=== PATIENT | female | born 1945 | race African-American/Black ===

== ENCOUNTER 2016-09-29 10:35 | Inpatient (IN) | payer OTHER, BC ==
[~2016-09-29] VITALS: Ht 167.6 cm; Wt 135.2 kg
--- NOTE | ~2016-09-29 | 2DMMODE ---
[facility] [address] [place] [address] 2 D/M-MODE ECHOCARDIOGRAM Name: ZULEIMA QUESADA Room #: 454-P ADM IN M.R.#: [id number] Admission: 09/29/16 Attend Phys: Atul Kitchen, Discharge: Date of : 49 Date of Service: 09/29/16 1555 Report #: [id number] THIS REPORT FOR: //name// APPROVED REPORT Study performed: 09/29/2016 14:58:49 EXAM: Comprehensive 2D, Doppler, and color-flow Echocardiogram Patient Location: Bedside Room #: 454 Status: routine Other Information Study Quality: Adequate Indications Arm heaviness. Hx: HTN, HLP 2D Dimensions RVDd: 36.03 mm LVEF(%): 62.04 (>50%) IVSd: 14.41 (7-11mm) LVOT Diam: 19.91 (18-24mm) LVDd: 43.45 mm PWd: 13.21 (7-11mm) LVDs: 29.04 (25-40mm) Aortic Root: 30.87 mm Neumann's LVEF: 62.04 % Volumes Left Atrial Volume (Systole) Single Plane 4CH: 64.39 mL Single Plane 2CH: 72.41 mL LA ESV Index: 31.00 mL/m2 Aortic Valve AoV Peak Mark.: 1.56 m/s AO Peak Gr.: 9.74 mmHg LVOT Max P.17 mmHg LVOT Max V: 1.43 m/s CHANDA Vmax: 2.85 cm2 Mitral Valve E/A Ratio: 0.8 MV Decel. Time: 272.71 ms MV E Max Mark.: 0.63 m/s MV A Mark.: 0.75 m/s MV PHT: 79.09 ms IVRT: 92.27 ms [facility] [place] [address] 2 D/M-MODE ECHOCARDIOGRAM Name: ZULEIMA QUESADA MAY Room #: 454-P [facility] IN ..#: [id number] Admission: 09/29/16 Attend Phys: Atul Kitchen, Discharge: Date of : 49 Date of Service: 09/29/16 1555 Report #: [id number] Pulmonary Valve PV Peak Mark.: 1.03 m/s PV Peak Gr.: 4.20 mmHg Pulmonary Vein P Vein S: 0.57 m/s P Vein A: 0.34 m/s P Vein D: 0.41 m/s P Vein A Dur.: 115.3 msec P Vein S/D Ratio: 1.39 Tricuspid Valve TR Peak Mark.: 3.23 m/s RAP Estimate: 5.00 mmHg TR Peak Gr.: 41.72 mmHg PA Pressure: 47.00 mmHg Left Ventricle The left ventricle is normal size. There is normal LV segmental wall motion. Mild to moderate concentric left ventricular hypertrophy. Left ventricular systolic function is normal. LVEF is 65-70%. Grade I diastolic dysfunction Right Ventricle The right ventricle is normal size. The right ventricular systolic function is normal. Atria Left atrium is at the upper limits of normal. The right atrium size is normal. Aortic Valve The aortic valve is not well visualized. No aortic regurgitation is present. There is no aortic valvular stenosis. Mitral Valve The mitral valve is normal in structure. Trace mitral regurgitation. Tricuspid Valve The tricuspid valve is normal in structure. There is mild tricuspid regurgitation. The right atrial pressure is estimated at 5 mmHg. There is moderate pulmonary hypertension with an estimated PAP of 47mmHg. Pulmonic Valve Pulmonic valve is not well visualized. [employer] [address] [address] 2 D/M-MODE ECHOCARDIOGRAM Name: ZULEIMA QUESADA Room #: 454-P [facility] IN [facility].#: [id number] Admission: 09/29/16 Attend Phys: Atul Kitchen, Discharge: Date of : 49 Date of Service: 09/29/16 1555 Report #: [id number] The aortic root is normal in size. IVC is normal in size and collapses >50% with inspiration. Pericardium There is no pericardial effusion. <Conclusion> Left ventricular systolic function is normal. There is normal LV segmental wall motion. LVEF 65-70%. Grade I diastolic dysfunction The aortic valve is not well visualized. No aortic regurgitation or stenosis The mitral valve is normal in structure. Trace mitral regurgitation. Pulmonary artery pressure of 47mmHg There is no pericardial effusion. <ELECTRONICALLY SIGNED> By: Raheel Miranda MD, [facility] 09/29/16 1555 1555 1555 Raheel Miranda MD, FAC /INF
--- NOTE | ~2016-09-29 | HC ---
[facility] [place] [address] CONSULTATION Name: ZULEIMA QUESADA Room #: 454-P [facility] IN M.R.#: [id number] Admission: 09/29/16 Attend Phys: Atul Kitchen DO Discharge: Date of : 49 Report #: [id number] THIS REPORT FOR: //name// CC: Autl Salcedoalicia Transon DATE OF SERVICE: 09/29/2016 INDICATION: Anginal equivalent/left arm discomfort. HISTORY OF PRESENT ILLNESS: This is a pleasant 71-year-old female with a past medical history significant for hypertension, hypercholesterolemia and herniated lumbar spine. The patient reports experiencing a discomfort in her left arm for the past one week. It seems to come and go, not related to walking. left hand or carrying groceries with the left hand will aggravate or exacerbate the discomfort in the left arm. There is no change in symptoms with carrying groceries with the right hand. She denies any history of dyspnea, lightheadedness, palpitations, or congestion. PAST MEDICAL HISTORY: Hypertension, hypercholesterolemia, and lumbar laminectomy. ALLERGIES: To CONTRAST DYE and SULFA. MEDICATIONS: Include Toprol-XL 50 mg daily, albuterol inhaler, aspirin once a day, amlodipine 5 mg, and lorazepam. SOCIAL HISTORY: Denies tobacco use. FAMILY HISTORY: Negative for premature CAD. REVIEW OF SYSTEMS: A full 10-point review of systems performed. Only the pertinent positives and negatives are described in the HPI. PHYSICAL EXAMINATION: VITAL SIGNS: Blood pressure is 140/70, heart rate is 70 beats per minute. GENERAL APPEARANCE: This is an overweight female, in no acute respiratory distress. HEAD AND EYES: Normocephalic. Sclerae are anicteric. ENT: Oral mucosa moist. NECK: Supple. LUNGS: Clear to auscultation. No wheezing. CARDIAC: Regular rate and rhythm, S1, S2 positive. ABDOMEN: Soft, nontender. EXTREMITIES: No major joint deformities. No edema. NEUROLOGIC: Alert and oriented x3. [facility] [address] [place] [address] CONSULTATION Name: ZULEIMA QUESADA MAY Room #: [address] [place] [address] IN M.R.#: [id number] Admission: 09/29/16 Attend Phys: Atul Kitchen DO Discharge: Date of : 49 Report #: [id number] SKIN: No rashes. LABORATORY VALUES: Sodium is 142, creatinine is 0.6. Troponin is negative. White count is 4.8, hemoglobin 15.1. ECG reveals sinus rhythm, nonspecific T-wave abnormalities. Echo reveals normal LV systolic function. ASSESSMENT AND PLAN: 1. Left arm discomfort, by history. The etiology is more likely related to arthritis of the left shoulder or neuropathy extending from her cervical spine. She would benefit from an orthopedic and possibly a neurologic consultation. 2. Hypertension. The blood pressure is stable on the current regimen. The echo reveals normal left ventricular systolic function. We would defer any type of stress testing until her primary complaint has been evaluated. 3. Hypercholesterolemia, consider a fasting lipid profile. 4. Obesity, dietary restrictions has been discussed. Thank you for allowing me to participate in the care of your patient. <ELECTRONICALLY SIGNED> By: Andres Malave MD 09/30/16 0746 1837 [id number] Andres Malave MD /nt
--- NOTE | ~2016-09-29 | EKG ---
[address] [place] [address] ELECTROCARDIOGRAM REPORT Name: ZULEIMA QUESADA Room #: 454-P ADM IN M.R.#: [id number] Admission: 09/29/16 Attend Phys: Atul Kitchen DO Discharge: Date of : 49 Report #: [id number] THIS REPORT FOR: //name// [facility] ED Test Date: 2016-09-29 Test Time: 11:22:45 Pat Name: ZULEIMA QUESADA Department: Room: [facility] Gender: F Canteen Operator: KKODJOVI : 1945 Requested By: Neelima Haskins Order Number: [id number] MD: Raheel Miranda Measurements Intervals [place] Rate: 71 P: 39 SD: 208 QRS: 5 QRSD: 102 T: 15 QT: 413 QTc: 449 Interpretive Statements Sinus rhythm Borderline T wave abnormalities Compared to ECG 02/15/2013 07:24:12 No significant changes Electronically Signed On 09-30-2016 7:51:26 CDT by Raheel Miranda [email or web address] <ELECTRONICALLY SIGNED> By: Raheel Miranda MD, [facility] 09/30/16 0751 21 21 Raheel Miranda MD, [facility] /EPI
[~2016-09-29 10:35] MED LIST: ACETAMINOPHEN-1 EAC1 PO; ALLEGRA ALLERG180 MG PO; ASPIRIN EC325 M1 PO; ATENOLOL 50 MG50 M1 PO; ATIVAN0.5 MG PO; ATIVAN1 MG PO; CIPROFLOXACIN500 M1 PO; DIFLUCAN150 MG PO; FLOMAX PO; IBUPROFEN 600600 M1 PO; LOPRESSOR 50 MG50 M1 PO; LORTAB 10 MG-3473 ML PO; MAXIDE PO; MAXZIDE 75-501 EACH PO; MINIPRIN81 MG PO; MOM; MULTIVITAMINS PO; NORCO 5-325 TA1 EACH PO; NORVASC 5 MG TAB5 MG PO; PAXIL10 MG; PROAIR HFA8.5 GM INH; SIMVASTATIN40 MG PO; TOPROL XL50 MG PO; VITAMIN D1000 UNI1 PO; VITAMIN D400 UNI1 PO; ZETIA10 MG PO; ZOFRAN ODT4 MG PO
[2016-09-29 10:38] VITALS: BP 171/92
[2016-09-29 12:14] LABS: HEMATOCRIT 44.9 % (37.0-47.0); HEMOGLOBIN 15.1 gm/dL (12.0-15.0); MCH 30.7 pg (26.0-34.0); MCHC 33.6 g/dL (28.0-37.0); MCV 91.2 fL (80.0-100.0); RBC 4.92 mil/uL (4.20-5.00); RDW 14.3 % (10.5-14.5); WBC 4.8 thou/uL (4.0-11.0)
[2016-09-29 12:26] LABS: ANION GAP 8 mmol/L (7-16); BUN 17 mg/dL (7-18); CALCIUM 9.5 mg/dL (8.5-10.1); CHLORIDE 104 mmol/L (98-107); CO2 30 mmol/L (21-32); CREATININE 0.6 mg/dL (0.6-1.0); GLUCOSE 106 mg/dL (74-106); POTASSIUM 3.5 mmol/L (3.5-5.1); SODIUM 142 mmol/L (136-145)
[2016-09-29 12:33] LABS: ALBUMIN 3.7 g/dL (3.4-5.0); ALKALINE PHOSPHATASE 95 U/L (46-116); SGOT 17 U/L (15-37); SGPT 23 U/L (30-65); TOTAL BILIRUBIN 0.5 mg/dL (<0.1-1.0); TOTAL PROTEIN 7.8 g/dL (6.4-8.2); TROPONIN-I < 0.04 ng/mL (<0.04-0.07)
[2016-09-29 14:14] VITALS: BP 136/79
[2016-09-29 14:47] LABS: CHOLESTEROL 283 mg/dL (<200); HDL CHOLESTEROL 92 mg/dL (>40); LDL CHOLESTEROL 176 mg/dL (<100); SERUM ASSESSMENT Clear; TC:HDL 3.1 Ratio (Not establshd); TRIGLYCERIDE 78 mg/dL (<150); VLDL 16 mg/dL (<40)
[2016-09-29 14:53] VITALS: BP 138/74
[2016-09-29 15:01] VITALS: BP 140/74
[2016-09-29 18:58] VITALS: BP 127/69
[2016-09-30 02:23] LABS: BASOPHILS 0.6 % (0.0-2.0); EOSINOPHILS 2.1 % (0.0-3.0); HEMATOCRIT 41.8 % (37.0-47.0); HEMOGLOBIN 13.9 gm/dL (12.0-15.0); LYMPHOCYTES 28.4 % (24.0-44.0); MCH 30.1 pg (26.0-34.0); MCHC 33.2 g/dL (28.0-37.0); MCV 90.6 fL (80.0-100.0); MONOCYTES 8.9 % (1.0-8.0); PLATELET COUNT 181 thou/uL (150-400); RBC 4.61 mil/uL (4.20-5.00); WBC 5.1 thou/uL (4.0-11.0)
[2016-09-30 02:24] LABS: MANUAL DIFF NO
[2016-09-30 02:39] LABS: ANION GAP 6 mmol/L (7-16); BUN 15 mg/dL (7-18); CHLORIDE 108 mmol/L (98-107); CO2 28 mmol/L (21-32); CREATININE 0.7 mg/dL (0.6-1.0); GLUCOSE 105 mg/dL (74-106); POTASSIUM 3.5 mmol/L (3.5-5.1); SODIUM 142 mmol/L (136-145); TROPONIN-I < 0.04 ng/mL (<0.04-0.07)
[2016-09-30 04:18] VITALS: BP 142/74
[2016-09-30 07:48] VITALS: BP 126/72
[2016-09-30 11:28] VITALS: BP 157/94
[2016-09-30 15:00] VITALS: BP 103/58
[2016-09-30 17:04] VITALS: BP 103/58
== END 2016-09-30 17:40 | disposition home or self-care (01) | DRG 92 ==
LOC: ER 10:35 → EROBS 13:50 → 4W 13:50
PROVIDERS: Family Medicine; Physician Assistant
DX: R20.0 Anesthesia of skin (principal); Z68.42 Body mass index [BMI] 45.0-49.9, adult; I10 Essential (primary) hypertension; E78.00 Pure hypercholesterolemia, unspecified; E66.9 Obesity, unspecified; Z96.0 Presence of urogenital implants; J45.909 Unspecified asthma, uncomplicated; E78.5 Hyperlipidemia, unspecified; F41.9 Anxiety disorder, unspecified; Z88.2 Allergy status to sulfonamides; Z91.041 Radiographic dye allergy status; Z79.82 Long term (current) use of aspirin; Z87.442 Personal history of urinary calculi; Z79.899 Other long term (current) drug therapy
CPT/HCPCS: 10045

== ENCOUNTER 2019-03-01 13:49 | Emergency (ER) | payer OTHER, BC ==
[~2019-03-01] VITALS: Ht 170.2 cm; Wt 113.4 kg
[2019-03-01 14:32] LABS: ABSOLUTE NEUTROPHILS 7.5 thou/uL (1.4-8.2); BASOPHILS 0.5 % (0.0-2.0); EOSINOPHILS 0.9 % (0.0-3.0); HEMATOCRIT 41.8 % (37.0-47.0); HEMOGLOBIN 13.5 gm/dL (12.0-15.0); MCHC 32.3 g/dL (28.0-37.0); MCV 92.8 fL (80.0-100.0); MONOCYTES 7.5 % (1.0-8.0); PLATELET COUNT 182 thou/uL (150-400); POLYS 83.1 % (36.0-66.0); RBC 4.51 mil/uL (4.20-5.00); RDW 14.4 % (10.5-14.5)
[2019-03-01 14:47] LABS: PROTIME 10.6 Seconds (9.3-11.4)
[2019-03-01 14:49] LABS: URINE BILIRUBIN NEGATIVE (Negative); URINE BLOOD 3+ (Negative); URINE CLARITY CLEAR; URINE COLOR YELLOW; URINE GLUCOSE-RANDOM* NEGATIVE (Negative); URINE KETONES NEGATIVE (Negative); URINE LEUKOCYTES-REFLEX 1+ (Negative); URINE NITRITE-REFLEX NEGATIVE (Negative); URINE PROTEIN (DIPSTICK) NEGATIVE (Negative); URINE SPECIFIC GRAVITY 1.015 (1.005-1.035); URINE UROBILINOGEN 0.2 E.U./dl (0.2-1.0)
[2019-03-01 14:50] LABS: ALBUMIN 3.7 g/dL (3.4-5.0); ANION GAP 10 mmol/L (7-16); BUN 17 mg/dL (7-18); CHLORIDE 104 mmol/L (98-107); CO2 28 mmol/L (21-32); CREATININE 0.8 mg/dL (0.6-1.0); GLUCOSE 109 mg/dL (74-106); LIPASE 210 U/L (73-393); POTASSIUM 4.2 mmol/L (3.5-5.1); SGOT 21 U/L (15-37); SGPT 29 U/L (30-65); SODIUM 142 mmol/L (136-145); TOTAL BILIRUBIN 0.4 mg/dL (<0.1-1.0); TOTAL PROTEIN 7.7 g/dL (6.4-8.2); TROPONIN-I <0.06 ng/mL (<0.06)
[2019-03-01] MEDS ORDERED: METFORMIN HCL500 M3 PO (14:51)
[2019-03-01 14:55] LABS: CALCIUM 10.3 mg/dL (8.5-10.1)
[2019-03-01 15:02] LABS: CASTS None Seen /LPF (None Seen); SQUAMOUS 0-3 Few /LPF (0-3); URINE RBC >20 Many /HPF (0-2); URINE WBC-REFLEX 0-5 Rare /HPF (0-5)
[2019-03-01 15:03] LABS: BACTERIA-REFLEX 1-9 Few /HPF (None Seen); CRYSTALS None Seen /LPF (None Seen)
[2019-03-01] MEDS ORDERED: ZOFRAN ODT4 MG PO (16:06)
[2019-03-01] MEDS ORDERED: KEFLEX500 M1 PO (16:06)
[2019-03-01] MEDS ORDERED: NORCO 5-325 TA1 EAC1 PO (16:06)
[2019-03-01 16:43] VITALS: BP 167/83
--- NOTE | 2019-03-03 14:59 | EKG ---
[address] [place] [address] ELECTROCARDIOGRAM REPORT Name: ZULEIMA QUESADA [id number] Admission: 03/01/19 Attend Phys: Discharge: 03/01/19 Date of : 49 Report #: [id number] THIS REPORT FOR: //name// [facility] ED Test Date: 2019-03-01 Test Time: 14:31:48 Pat Name: ZULEIMA QUESADA Department: Room: Gender: F Director Of Religious Activities: : 1945 Requested By: Beatris Davies Order Number: [id number] MD: Titi Bucio Measurements Intervals [place] Rate: 80 P: 58 MA: 221 QRS: 17 QRSD: 98 T: 21 QT: 388 QTc: 448 Interpretive Statements Sinus rhythm Prolonged MA interval Probable left atrial enlargement Compared to ECG 12/24/2016 14:03:19 First degree AV block now present T-wave abnormality no longer present Electronically Signed On 03-03-2019 14:59:05 ASSEMBLER 1ST SHIFT by Titi Bucio [email or web address] <ELECTRONICALLY SIGNED> By: Titi Bucio MD 03/03/19 1459 143 143 Titi Bucio MD /JOE
== END 2019-03-01 16:43 | disposition home or self-care (01) ==
LOC: ER 13:49
PROVIDERS: Physician Assistant
DX: N20.1 Calculus of ureter (principal); R11.2 Nausea with vomiting, unspecified; I10 Essential (primary) hypertension; E78.00 Pure hypercholesterolemia, unspecified; J45.909 Unspecified asthma, uncomplicated; F41.9 Anxiety disorder, unspecified; Z87.442 Personal history of urinary calculi; Z91.041 Radiographic dye allergy status; Z88.2 Allergy status to sulfonamides

== ENCOUNTER 2019-12-08 03:43 | Emergency (ER) | payer OTHER, BC ==
[~2019-12-08] VITALS: Ht 170.2 cm; Wt 130.6 kg
[~2019-12-08 03:43] MED LIST changes: +KEFLEX500 M1 PO; +METFORMIN HCL500 M3 PO; +NORCO 5-325 TA1 EAC1 PO
[2019-12-08 05:24] LABS: BASOPHILS 0.8 % (0.0-2.0); EOSINOPHILS 1.9 % (0.0-3.0); HEMATOCRIT 43.6 % (37.0-47.0); HEMOGLOBIN 14.1 gm/dL (12.0-15.0); LYMPHOCYTES 19.1 % (24.0-44.0); MCH 29.7 pg (26.0-34.0); MCHC 32.4 g/dL (28.0-37.0); MCV 91.7 fL (80.0-100.0); MONOCYTES 8.1 % (1.0-8.0); PLATELET COUNT 201 thou/uL (150-400); POLYS 70.1 % (36.0-66.0); RBC 4.76 mil/uL (4.20-5.00); RDW 14.5 % (10.5-14.5); WBC 4.3 thou/uL (4.0-11.0)
[2019-12-08 05:25] LABS: ANION GAP 11 mmol/L (7-16); BUN 18 mg/dL (7-18); CALCIUM 9.5 mg/dL (8.5-10.1); CHLORIDE 103 mmol/L (98-107); CO2 27 mmol/L (21-32); CREATININE 0.6 mg/dL (0.6-1.0); GLUCOSE 113 mg/dL (74-106); POTASSIUM 4.2 mmol/L (3.5-5.1); SODIUM 141 mmol/L (136-145)
[2019-12-08 05:35] LABS: ALBUMIN 3.7 g/dL (3.4-5.0); MAGNESIUM 1.7 mg/dL (1.8-2.4); SGOT 28 U/L (15-37); SGPT 22 U/L (30-65); TOTAL BILIRUBIN 0.5 mg/dL (0.2-1.0); TROPONIN-I <0.06 ng/mL (<0.06)
[2019-12-08] MEDS ORDERED: MECLIZINE HCL25 M1 PO (05:50)
[2019-12-08] MEDS ORDERED: VALIUM2 MG PO (05:50)
[2019-12-08 05:57] VITALS: BP 147/79
--- NOTE | 2019-12-08 07:52 | EKG ---
[facility] [place] [address] ELECTROCARDIOGRAM REPORT Name: ZULEIMA QUESADA Room #: DEP [facility]#: [id number] Admission: 12/08/19 Attend Phys: Discharge: 12/08/19 Date of : 49 Report #: [id number] THIS REPORT FOR: cc: Jelani Powell MD, Sequita MD Lundgren,Raheel Mccloud MD [facility] ~ THIS REPORT FOR: //name// [facility] ED Test Date: 2019-12-08 Test Time: 03:59:40 Pat Name: ZULEIMA QUESADA Department: Room: Gender: F Mail Distributor: [facility] : 1945 Requested By: Daren Kelly Order Number: [id number] MD: Raheel Miranda Measurements Intervals [place] Rate: 75 P: 32 TN: 242 QRS: 8 QRSD: 97 T: 33 QT: 420 QTc: 470 Interpretive Statements Sinus rhythm Prolonged TN interval Borderline T wave abnormalities Compared to ECG 03/01/2019 14:31:48 T-wave abnormality now present Electronically Signed On 12-08-2019 7:52:04 CDT by Raheel Miranda [email or web address] <ELECTRONICALLY SIGNED> By: Raheel Miranda MD, FAC 12/08/19 0752 0359 0359 Raheel Miranda MD, FAC /EPI
== END 2019-12-08 06:10 | disposition still patient (30) ==
LOC: ER 03:43
PROVIDERS: Emergency Medicine
DX: H81.10 Benign paroxysmal vertigo, unspecified ear (principal); I10 Essential (primary) hypertension; J45.909 Unspecified asthma, uncomplicated; E78.00 Pure hypercholesterolemia, unspecified; F41.9 Anxiety disorder, unspecified; E11.9 Type 2 diabetes mellitus without complications; Z87.442 Personal history of urinary calculi; Z79.899 Other long term (current) drug therapy; Z79.82 Long term (current) use of aspirin; Z91.041 Radiographic dye allergy status; Z88.2 Allergy status to sulfonamides

== ENCOUNTER 2020-03-24 10:06 | Emergency (ER) | payer OTHER, BC ==
[~2020-03-24] VITALS: Ht 170.2 cm; Wt 117.9 kg
[~2020-03-24 10:06] MED LIST changes: +MECLIZINE HCL25 M1 PO; +VALIUM2 MG PO
[2020-03-24 11:46] VITALS: BP 166/85
--- NOTE | 2020-03-24 12:52 | EKG ---
[place] [address] [address] [facility] [place] [address] ELECTROCARDIOGRAM REPORT Name: ZULEIMA QUESADA Room #: DEP [place]#: [id number] Admission: 03/24/20 Attend Phys: Discharge: 03/24/20 Date of : 49 Report #: [id number] [facility] ED Test Date: 2020-03-24 Test Time: 10:34:22 Pat Name: ZULEIMA QUESADA Department: Room: Gender: F Senior Clinical Consultant: antione pradhan : 1945 Requested By: Rah Messer Order Number: [id number] MD: Raheel Miranda Measurements Intervals [place] Rate: 72 P: 42 AR: 228 QRS: 6 QRSD: 100 T: 31 QT: 411 QTc: 450 Interpretive Statements Sinus rhythm Prolonged AR interval Borderline T wave abnormalities Compared to ECG 12/08/2019 03:59:40 No significant changes Electronically Signed On 03-24-2020 12:52:25 NURSING UNIT COORDINATOR by Raheel Miranda [email or web address] <ELECTRONICALLY SIGNED> By: Raheel Miranda MD, [facility] 03/24/20 1252 1034 1034 Raheel Miranda MD, FACC /EPI
== END 2020-03-24 11:47 | disposition home or self-care (01) ==
LOC: ER 10:06
DX: S09.90XA Unspecified injury of head, initial encounter (principal); I10 Essential (primary) hypertension; E11.9 Type 2 diabetes mellitus without complications; F41.9 Anxiety disorder, unspecified; E78.00 Pure hypercholesterolemia, unspecified; J45.909 Unspecified asthma, uncomplicated; Z79.899 Other long term (current) drug therapy; Z87.442 Personal history of urinary calculi; Z79.82 Long term (current) use of aspirin; Z91.041 Radiographic dye allergy status; Z88.2 Allergy status to sulfonamides; W01.0XXA Fall on same level from slipping, tripping and stumbling without subsequent striking against object, initial encounter; Y93.E1 Activity, personal bathing and showering; Y92.002 Bathroom of unspecified non-institutional (private) residence as the place of occurrence of the external cause; Y99.8 Other external cause status